=== PATIENT | male | born 1995 | race Two or more races ===

== ENCOUNTER 2025-01-22 07:13 | Emergency (ER) | payer OTHER ==
[~2025-01-22] VITALS: Ht 175.3 cm; Wt 87.0 kg
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
[2025-01-22 08:30] VITALS: BP 117/79; PULSE 84; RESP 16; TEMP 98.7; O2SAT 95
[2025-01-22] MEDS ORDERED: NAPR-746 PO (08:41)
[2025-01-22] MEDS ORDERED: METH-1181 PO (08:41)
== END 2025-01-22 08:53 | disposition home or self-care (01) ==
LOC: ER 07:18
DX: M25.562 Pain in left knee (principal); M25.572 Pain in left ankle and joints of left foot; V29.99XA Rider (driver) (passenger) of other motorcycle injured in unspecified traffic accident, initial encounter; Y93.89 Activity, other specified; Y92.488 Other paved roadways as the place of occurrence of the external cause; Y99.8 Other external cause status
CPT/HCPCS: 73502; 73562; 73610